=== PATIENT | female | born 1955 | race Caucasian/White ===

== ENCOUNTER 2025-04-29 07:49 | Outpatient (REF) | payer MEDICARE, SELFPAY ==
--- OUTSIDE RECORDS SUMMARY | 2025-04-29 07:52 | XMS_ITS ---
Author Name [facility] Organization Unknown Care Team Organization Name Specialty Phone Email Start Date End [facility] 04/10/2025
--- OUTSIDE RECORDS SUMMARY | 2025-04-29 07:52 | XMS_ITS | Clinical Summary ---
Author Organization [address] Address [address] [place] [phone] Phone Care Team Providers Care Mail Clerk Bills Name Role Phone Dax Masters MD Primary Care Pr ovider Allergies Active Allergy Reactions Criticality Noted Date Comments Cefazolin Rash Medium 05/24/2024 Diffuse fine macular rash after surgery, possibly due to antibiotics. Other Rash Medium 05/24/2024 Chlorhexidine Gluconate-alcohol Diffuse fine macular rash after surgery, possibly due to ChloraPrep skin prep. Medications calcium carbonate/vitamin D3 (CALCIUM 600 + D,3, ORAL) 1 Tab daily. Active amoxicillin (AMOXIL) 500 mg capsule Take by mouth. Active levothyroxine (SYNTHROID, LEVOTHROID) 50 mcg tabletIndications:A cquired hypothyroidism Take 1 tablet (50 mcg total) by mouth 1 (one) time each day before breakfast. 90 each 1 5 09/09/19 26 Active Active Problems Problem Noted Date Diagnosed Date Wheezing 09/12/2024 Assessment & Plan (03/13/2025 9:31 AM EDT): See HPI. PFTs reordered Orders: Pulmonary function testing: Spirometry, Spirometry with Bronchodilator Assessment & Plan (09/12/2024 10:55 AM EST): Noted on exam. She notes occasional nighttime wheezing. She is a former smoker. Will check PFTs and chest x-ray. Start albuterol PRN Orders: XR Chest 2 Views; Future Pulmonary function testing: Spirometry, Spirometry with Bronchodilator albuterol HFA (ProAir HFA) 90 mcg/actuation inhaler; Inhale 2 puffs by mouth every 4 (four) hours if needed for wheezing or shortness of breath. Bilateral hearing loss 09/12/2024 Assessment & Plan (03/13/2025 9:31 AM EDT): Referred to audiology for hearing exam. See HPI Orders: Ambulatory referral to Audiology; Future Assessment & Plan (09/12/2024 10:55 AM EST): Will refer for hearing test Orders: Comprehensive hearing test; Future Prediabetes 09/12/2024 Assessment & Plan (03/13/2025 9:31 AM EDT): Lifestyle counseling provided. Will update A1c Orders: Hemoglobin A1c; Future Left ovarian cyst 10/24/2023 Overview (07/17/2024): Normal CA 125 10/24/23, repeat US scheduled in 3 mos Last Assessment & Plan: I explained to Manjula that, based on stability, it likely means this is benign. However, based on calcification and septation, as well as possible family history, I recommended a second opinion from Dr. Torrez. She agreed. Referral placed. She was informed that she should hear back in 1-2 weeks with an appointment date. If not, she should call back to our office and inquire on getting this arranged. She voiced understanding and agreed. History of right oophorectomy 10/11/2023 Osteoporosis 02/09/2017 Assessment & Plan (03/13/2025 9:31 AM EDT): Advised to start strength training exercises. She will continue calcium/vitamin D supplement. She is currently not interested in medication management for osteoporosis Assessment & Plan (09/12/2024 10:55 AM EST): Currently not interested in prescription medication for osteoporosis. She will continue calcium/vitamin D supplement daily Will update DEXA Orders: CBC and differential; Future Comprehensive metabolic panel; Future Vitamin D 25 hydroxy; Future BD Bone Density DXA Axial Skeleton; Future Colonic polyp 09/25/2015 Overview (07/17/2024): Tubullo-villous adenoma; 09/06; Hirschkorn; R 1 yr Hypothyroid 06/14/2013 Assessment & Plan (03/13/2025 9:31 AM EDT): Well controlled Continue levothyroxine Orders: levothyroxine (SYNTHROID, LEVOTHROID) 50 mcg tablet; Take 1 tablet (50 mcg total) by mouth 1 (one) time each day before breakfast. Thyroid stimulating hormone with reflex to free t4 and free t3; Future Assessment & Plan (09/12/2024 10:55 AM EST): Will update labs. For now continue levothyroxine 50 mcg daily. Orders: CBC and differential; Future Comprehensive metabolic panel; Future Thyroid stimulating hormone with reflex to free t4 and free t3; Future Thyroid peroxidase antibody; Future Vitamin D deficiency 06/14/2013 Assessment & Plan (03/13/2025 9:31 AM EDT): Continue daily calcium/vitamin D supplement Orders: Vitamin D 25 hydroxy; Future Assessment & Plan (09/12/2024 10:55 AM EST): Continue calcium/vitamin D daily Orders: Vitamin D 25 hydroxy; Future Hiatal hernia 05/21/2010 GERD (gastroesophageal reflux disease) 0 Overview (07/17/2024): Upper GI endoscopy 05/21/2010: 4 cm hiatal hernia, no esophagitis on ppi rx Assessment & Plan (03/13/2025 9:31 AM EDT): Continue lifestyle management Assessment & Plan (09/12/2024 10:55 AM EST): Continue Tums as needed which is effective Declines tx with pepcid or omeprazole Hyperlipidemia 12/20/2008 Overview (09/12/2024): Calculated ascvd risk is 9.8% Assessment & Plan (03/13/2025 9:31 AM EDT): See HPI Counselling provided on need for statin medication but she declines the treatment at this time. Will update labs Advised to increase her exercise at least 30 minutes a day 5 days a week and follow a low-cholesterol diet Orders: Lipid panel with reflex to direct LDL; Future Comprehensive metabolic panel; Future Assessment & Plan (09/12/2024 10:55 AM EST): Lifestyle modification counseling provided Orders: Lipid panel with reflex to direct LDL; Future Hemoglobin A1c; Future Volvulus (CMS/HCC V24, CMS/HCC V28) 06/16/2006 Overview (07/17/2024): Rtew-ck-jrnc ileocolonic anastomosis. Celiac disease 06/16/2006 Assessment & Plan (03/13/2025 9:31 AM EDT): Continue gluten-free diet Assessment & Plan (01/11/2025 9:58 AM EDT): Slightly elevated TTG(6) Patient has been stricter about following her gluten-free diet Routine labs with PCP were in normal range including LFTs, TSH, vitamin D Will follow-up as needed Assessment & Plan (10/12/2024 1:11 PM EST): Orders: Tissue transglutaminase, IgA; Future Resolved Problems Problem Noted Date Diagnosed Date Resolved Date Heartburn 06/16/2006 03/13/2025 Overview (07/17/2024): 01/29- dr Cazares normal laryngoscopy Encounters Date Type Department Care Team Description 04/04/2025 7:45 AM EDT - 04/04/2025 11:59 PM EDT Hospital Encounter Radiology Department - [address] [phone] Encounter for screening mammogram for breast cancer Discharge Disposition: Home or Self Care 04/01/2025 12:32 PM EDT - 04/01/2025 11:59 PM EDT Hospital Encounter [facility] Pulmonary [address] [place] [address] Discharge Disposition: Home or Self Care 03/13/2025 9:00 AM EDT Office Visit [address] [phone] Dax Masters MD Annual wellness visit (Primary Dx); Acquired hypothyroidism; Mixed hyperlipidemia; Localized osteoporosis without current pathological fracture; Prediabetes; Vitamin D deficiency; Gastroesophageal reflux disease without esophagitis; Celiac disease; Sensorineural hearing loss (SNHL) of both ears; Wheezing; Elevated vitamin B12 level from Last 3 Months Immunizations Name Administration Dates Next Due PPD Test 06/20/2006 Td Tetanus diptheria (Tdvax) 7yo and older 04/27 Tdap Tetanus diptheria acell ular pertussis (Boostrix; Adacel) 7yo and older 12/06/2007 Surgical History Surgery Date Site/Laterality Comments OTHER SURGICAL HISTORY 1989 PROCEDURE: HISTORICAL TOTAL HYSTERECTOMY W/O BSO; COMMENT: Hysterectomy with right salpingo-oophorectomy at age 35 for fibroids. COLONOSCOPY 09/02/2005 PROCEDURE: HISTORICAL COLONOSCOPY; COMMENT: normal, no microscopic colitis ESOPHAGOGASTRODUODENOSCOPY 09/02/2005 PROCEDURE: SD EGD TRANSORAL BIOPSY SINGLE/MULTIPLE; COMMENT: celiac disease OTHER SURGICAL HISTORY 1996 PROCEDURE: SD COLECTOMY PARTIAL W/ANASTOMOSIS; COMMENT: right colectomy for cecal volvulus. ESOPHAGOGASTRODUODENOSCOPY 2009 PROCEDURE: SD ESOPHAGOGASTRODUODENOSCOPY TRANSORAL DIAGNOSTIC; COMMENT: 4 cm hiatal hernia, no esophagitis on ppi rx COLONOSCOPY 09/11/2015 PROCEDURE: HISTORICAL COLONOSCOPY; COMMENT: 2 cm rectal polyp: Tubulovillous adenoma with high-grade dysplasia, no cancer. COLONOSCOPY 09/14/2016 PROCEDURE: HISTORICAL COLONOSCOPY; COMMENT: no polyps BREAST BIOPSY Right PROCEDURE: BX BREAST; PERC NEEDLE CORE W/IMAG GUID; COMMENT: neg COLONOSCOPY 09/22/2021 - 10/19/2021 sig tics, prior end-to-end ileo-colonic anastomosis at hepatic flexure, tattoo in rectum (5 yr) Dr. Calle HYSTERECTOMY Medical History Medical History Date Comments Volvulus (CMS/HCC V24, CMS/HCC V28) 06/16/2006 DX:Volvulus (HCC) Heartburn 06/16/2006 DX:Heartburn Celiac disease 06/16/2006 DX:Celiac diseas e Other and unspecified hyperlipidemia 12/20/2008 DX:Other and unspecified hyperlipidemia Hypothyroid 06/14/2013 DX:Hypothyroid Constipation DX:Constipation Family History Medical History Relation Name Comments Breast cancer Aunt ma Ovarian cancer Aunt jairo Other: Other Brother possible enlarg ed heart Ovarian cancer Daughter 19 cm mass, s tage [place], treated with surgery alone. Colon polyps Father dx > 60 yo Hypertension Father Diabetes Maternal Grandmother Heart attack Maternal Grandmother Other: problem Maternal Grandmother angin a Colon cancer Neg Hx Relation Name Status Comments Aunt jairo Brother Daughter Alive Father Alive Maternal Grandmother Mother Alive Social History Tobacco Use Types Packs/Day Years Used Date Smoking Tobacco: Former Cigarettes 0 1971 - 08/22/1983 Smokeless Tobacco: Never Tobacco Cessation:Counseling Given: Not Answered Comments:Quit smoking about 42 years ago Alcohol Use Standard Drinks/Week Comments Not Currently 1 (1 standard drink = 0.6 oz pur e alcohol) social Comments No Sex and Gender Information Value Date Recorded Sex Assigned at Not on file Legal Sex Female 11:40 PM EST Gender Identity Not on file Sexual Orientation Not on file Obstetrics History Para Term AB IAB SAB Ectopic Multiple Livin g Live Births 2 2 2 2 Date Outcome GA Total Labor Labor/2nd/3rd Weight Sex Type Anes PTL Génesis A1 A5 Name Clin Term Term Last Filed Vital Signs Vital Sign Reading Time Taken Comments Blood Pressure 120/78 03/13/2025 8:37 AM EDT Pulse 88 03/13/2025 8:37 AM EDT Temperature 36.4 C (97.5 F) 03/13/2025 8:37 AM EDT Respiratory Rate 17 09/12/2024 8:40 AM EST Oxygen Saturation 95% 03/13/2025 8:37 AM EDT Inhaled Oxygen Concentration - - Weight 70.9 kg (156 lb 6.4 oz) 03/13/2025 8:37 A M EDT Height 157.5 cm (5' 2.01 ) 03/13/2025 8:37 AM ED T Body Mass Index 28.6 03/13/2025 8:37 AM EDT Plan of Treatment Upcoming Encounters Date Type Department Care Team (Late st Contact Info) Description 09/16/2025 9:30 AM EST Office Visit Adult Medicine [facility] [address] [place] [phone] Dax Masters MD [address] [place] [address] Health Maintenance Due Date Last Done Comments Social Influencers of Health Screening 07/31/2022 Falls Risk Assessment 03/13/2026 03/13/2025 Medicare Annual Wellness Visit 03/13/2026 03/13/2025 Colorectal Cancer Screening: Colonoscopy 10/05/2026 10/05/2021 Breast Cancer Screening 04/04/2027 04/04/20 25, 03/29/2024, 03/29/2024, Additional history exists DTaP,Tdap,and Td Vaccines (3 - Td or Tdap) 04/27/2028 04/27/2018, 12/06/2007 RSV Immunization Adult Patients (1 - 1-dose 75+ series) 2030 Cholesterol Screening (Lipid Panel) 03/13/2030 03/13/2025, 09/12/2024, 10/02/2020 Osteoporosis Screening (Bone Density Screening) 11/30/2034 11/30/2024, 08/07/2020 Hepatitis C Screening Completed 04/23/2016 Depression Screening Completed 03/13/2025 COVID-19 Vaccine Discontinued HIB Vaccines Aged Out No longer eligi ble based on patient's age to complete this topic HPV Vaccines Aged Out No longer eligi ble based on patient's age to complete this topic Hepatitis A Vaccines Aged Out No long er eligible based on patient's age to complete this topic Hepatitis B Vaccines Aged Out No long er eligible based on patient's age to complete this topic IPV Vaccines Aged Out No longer eligi ble based on patient's age to complete this topic Influenza Vaccine Discontinued MMR Vaccines Aged Out No longer eligi ble based on patient's age to complete this topic Meningococcal ACWY Vaccine Aged Out N o longer eligible based on patient's age to complete this topic Meningococcal B Vaccine Aged Out No l onger eligible based on patient's age to complete this topic Pneumococcal Vaccine: 50+ Years Discontinued RSV Immunization Patients Under 20 months Aged Out No longer eligible based on patient's age to complete this topic Varicella Vaccines Aged Out No longer eligible based on patient's age to complete this topic Zoster Vaccines Discontinued Procedures Procedure Name Priority Date/Time Associated Diagnosis Comments MG MAMMO DIGITAL SCREENING W NIK BILAT Routine 04/04/2025 8:01 AM EDT Encounter for screening mammogram for breast cancer HC SPIROMETRY BRONCHODILATION RESPONSIVENESS PRE/POST BRONCHODILATOR ADMINISTRATION Routine 04/01/2025 1:42 PM EDT Wheezing VITAMIN B12 Routine 03/13/2025 9:39 AM EDT Elevated vitamin B12 level COMPREHENSIVE METABOLIC PANEL Routine 03/13/2025 9:39 AM EDT Mixed hyperlipidemia HEMOGLOBIN A1C Routine 03/13/2025 9:39 AM EDT Prediabetes LIPID PANEL WITH REFLEX TO DIRECT LDL Routine 03/13/2025 9:39 AM EDT Mixed hyperlipidemia THYROID STIMULATING HORMONE WITH REFLEX TO FREE T4 AND FREE T3 Routine 03/13/2025 9:39 AM EDT Acquired hypothyroidism VITAMIN D 25 HYDROXY Routine 03/13/2025 9:39 AM EDT Vitamin D deficiency BD BONE DENSITY DXA AXIAL SKELETON Routine 11/30/2024 2:49 PM EDT Age-related osteoporosis without current pathological fracture HM COLONOSCOPY Routine 10/05/2021 HEPATITIS C SCREENING Routine 04/23/2016 from Last 3 Months or Most Recently Relevant to Health Maintenance Results * MG Mammo Digital Screening w Nik bilat (04/04/2025 8:01 AM EDT) Anatomical Region Laterality Modality Breast Bilateral Mammography 04/04/2025 5:42 PM EDT Impressions 04/04/2025 5:44 PM EDT No mammographic evidence of malignancy. BREAST DENSITY: B - There are scattered areas of fibroglandular density. BI-RADS CATEGORY: 1 - NEGATIVE RECOMMENDATION: Screening bilateral mammogram is recommended in 1 year. MAMMO LOCATION: [facility], [address] [place] [address], [id number], . -------- FINAL REPORT -------- Dictated By: Belinda Lord Dictated Date: 04/04/2025 17:42 ET Assigned Physician: Belinda Lord Reviewed and Electronically Signed By: Belinda Lord Signed Date: 04/04/2025 17:44 ET Workstation ID: [id number] Transcribed By: Self Edit Transcribed Date: 04/04/2025 17:42 ET Narrative 04/04/2025 5:44 PM EDT EXAM: Screening Mammogram CLINICAL: 70 years old, Female, routine annual exam. History of a benign right ultrasound-guided core biopsy on 08/19/2017. COMPARISON: 03/29/2024 and as far back as 11/27/2020 TECHNIQUE: Bilateral MLO and CC views were obtained digitally with 3-D mammogram (digital breast tomosynthesis). Computer-aided detection was utilized in evaluation of this exam (CAD). FINDINGS: No new suspicious mass, architectural distortion, or suspicious calcifications. Biopsy clip again noted in the posterior inner right breast. Procedure Note Belinda Lord MD - 04/04/2025 EXAM: Screening Mammogram CLINICAL: 70 years old, Female, routine annual exam. History of a benignright ultrasound-guided core biopsy on 08/19/2017. COMPARISON: 03/29/2024 and as far back as 11/27/2020 TECHNIQUE: Bilateral MLO and CC views were obtained digitally with 3-Dmammogram (digital breast tomosynthesis). Computer-aided detection wasutilized in evaluation of this exam (CAD). FINDINGS: No new suspicious mass, architectural distortion, or suspiciouscalcifications. Biopsy clip again noted in the posterior inner rightbreast. IMPRESSION: No mammographic evidence of malignancy. BREAST DENSITY: B - There are scattered areas of fibroglandular density. BI-RADS CATEGORY: 1 - NEGATIVE RECOMMENDATION: Screening bilateral mammogram is recommended in 1 year. MAMMO LOCATION: [facility], [address] [place] [address], [id number], . -------- FINAL REPORT -------- Dictated By: Belinda Lord Dictated Date: 04/04/2025 17:42 ET Assigned Physician: Belinda Lord Reviewed and Electronically Signed By: Belinda Lord Signed Date: 04/04/2025 17:44 ET Workstation ID: [id number] Transcribed By: Self Edit Transcribed Date: 04/04/2025 17:42 ET us Dax Masters MD IMG BI PROCEDURE S Final Result * Pulmonary function testing: Spirometry, Spirometry with Bronchodilator (04/01/2025 1:42 PM EDT) Narrative Moon Alejo MD - 04/01/2025 7:04 PM EDT Table formatting from the original result was not included. Images from the original result were not included. [facility] Lab [address] [place] [id number] Pulmonary Functions Report Date of service: 04/01/25 Patient Name: Manjula Shea Date of : 1955 Age: 70 y.o. Gender: female Procedure Order: Pulmonary function testing: Spirometry, Spirometry with Bronchodilator Ordering Provider: Dax Masters MD Reason for Exam: Order Questions Answers Reason for Exam: wheezing/? COPD/former smoker Which PFTs would you like to perform? Spirometry,Spirometry with Bronchodilator Diagnosis listed on Order: Wheezing Pulmonary Test Finding: Spirometry/ Flow Volume Loop: FEV1/FVC 80%. FEV1 is 2.44 at 118%, w/ z score 1.03. FVC is 115%. No bronchodilator response. Lung Volumes: TLC is normal 80%, w/ z score -1.59. RV is 43%. RV/TLC 54%. Diffusion Capacity: DLCO is 89%, (adjusted 89%). Shape of the flow-volume loop showed neither intrathoracic nor extrathoracic obstruction. Quality of Study: Meets ATS criteria for acceptability and repeatability Refer to scanned report for all additional results and graphs. Interpretation/Impression: No obstruction. No restriction. No decrease in diffusion. Findings consistent with normal pulmonary function testing. Dax Masters MD PFT ORDERABLES Final Result * Thyroid stimulating hormone with reflex to free t4 and free t3 (03/13/2025 9:39 AM EDT) [facility] TSH 1.95 0.40 - 4.00 mcIU/mL LAB CHEMISTRY METHOD 03/13/2025 2:21 PM EDT [facility] Blood Venous blood specimen / Unknown Venipuncture / Unknown 03/13/2025 9:39 AM EDT 03/13/2025 9:39 AM EDT Dax Masters MD LAB BLOOD ORDERA BLES Final Result [facility] [address] [place] [address], [place] [phone] * (ABNORMAL) Lipid panel with reflex to direct LDL (03/13/2025 9:39 AM EDT) Cholesterol 262(H) 0 - 200 mg/dL LAB CHEMISTRY METHOD 03/13/2025 1:36 PM EDT [facility] Triglycerides 135 0 - 150 mg/dL LAB CHEMISTRY METHOD 03/13/2025 1:36 PM EDT [facility] HDL 73 >=40 mg/dL LAB CHEMISTRY METHOD 03/13/2025 1:36 PM EDT [facility] LDL Calculated 162(H) 0 - 100 mg/dL LAB CHEMISTRY METHOD 03/13/2025 1:36 PM EDT [facility] VLDL Cholesterol Eliseo 27 mg/dL LAB CHEMISTRY METHOD 03/13/2025 1:36 PM EDT [facility] Non HDL Chol. (LDL+VLDL) 189(H) <145 mg/dL LAB CHEMISTRY METHOD 03/13/2025 1:36 PM EDT [facility] Chol/HDL Ratio 3.6 0.0 - 4.4 LAB CHEMISTRY METHOD 03/13/2025 1:36 PM EDT [facility] Blood Venous blood specimen / Unknown Venipuncture / Unknown 03/13/2025 9:39 AM EDT 03/13/2025 9:39 AM EDT Dax Masters MD LAB BLOOD ORDERA BLES Final Result Performing Organization Address [facility]/ZIP Co de Phone Number [facility] [address] [place] [address], [place] [phone] * (ABNORMAL) Vitamin D 25 hydroxy (03/13/2025 9:39 AM EDT) Pathologist [facility] Vit D, 25-Hydroxy 23.6(L) 30.0 - 80.0 ng/mL LAB CHEMISTRY METHOD 03/13/2025 2:21 PM EDT [facility] Blood Venous blood specimen / Unknown Venipuncture / Unknown 03/13/2025 9:39 AM EDT 03/13/2025 9:39 AM EDT Dax Masters MD LAB BLOOD ORDERA BLES Final Result [facility] [address] [place] [address], [place] [phone] * Hemoglobin A1c (03/13/2025 9:39 AM EDT) Pathologist [facility] Hemoglobin A1C 5.9 <6.5 % LAB CHEMISTRY METHOD 03/13/2025 1:40 PM EDT [facility] Mean Bld Glu Estim. 123 mg/dL LAB CHEMISTRY METHOD 03/13/2025 1:40 PM EDT [facility] Blood Venous blood specimen / Unknown Venipuncture / Unknown 03/13/2025 9:39 AM EDT 03/13/2025 9:39 AM EDT Dax Masters MD LAB BLOOD ORDERA BLES Final Result Performing Organization Address City/[facility]/ZIP Co de Phone Number [facility] [address] [place] [address], [place] [phone] * Vitamin B12 (03/13/2025 9:39 AM EDT) Vitamin B-12 672 250 - 900 pcg/mL LAB CHEMISTRY METHOD 03/13/2025 1:36 PM EDT [facility] Blood Venous blood specimen / Unknown Venipuncture / Unknown 03/13/2025 9:39 AM EDT 03/13/2025 9:39 AM EDT Dax Masters MD LAB BLOOD ORDERA BLES Final Result Performing Organization Address City/[facility]/ZIP Co de Phone Number [facility] [address] [place] [address], [place] [phone] * (ABNORMAL) Comprehensive metabolic panel (03/13/2025 9:39 AM EDT) Sodium 140 133 - 145 mmol/L LAB CHEMISTRY METHOD 03/13/2025 1:36 PM EDT [facility] Potassium 4.2 3.5 - 5.5 mmol/L LAB CHEMISTRY METHOD 03/13/2025 1:36 PM EDT [facility] Chloride 108 96 - 110 mmol/L LAB CHEMISTRY METHOD 03/13/2025 1:36 PM [facility] CO2 24 21 - 32 mmol/L LAB CHEMISTRY METHOD 03/13/2025 1:36 PM [facility] Anion Gap 8 3 - 11 LAB CHEMISTRY METHOD 03/13/2025 1:36 PM [facility] Glucose 107(H) 70 - 100 mg/dL LAB CHEMISTRY METHOD 03/13/2025 1:36 PM [facility] BUN 13 5 - 25 mg/dL LAB CHEMISTRY METHOD 03/13/2025 1:36 PM [facility] Creatinine 0.62 0.50 - 1.10 mg/dL LAB CHEMISTRY METHOD 03/13/2025 1:36 PM [facility] eGFR 96 >=60 mL/min/1. 73m2 LAB CHEMISTRY METHOD 03/13/2025 1:36 PM [facility] Comment:Calculation based on the Chronic Kidney Disease Epidemiology Collaboration (CKD-EPI) equation refit without adjustment for race. BUN/Creatinine Ratio 21.0 LAB CHEMISTRY METHOD 03/13/2025 1:36 PM [facility] Calcium 10.1 8.5 - 10.5 mg/dL LAB CHEMISTRY METHOD 03/13/2025 1:36 PM [facility] AST (SGOT) 25 10 - 42 unit/L LAB CHEMISTRY METHOD 03/13/2025 1:36 PM [facility] ALT (SGPT) 33 10 - 60 unit/L LAB CHEMISTRY METHOD 03/13/2025 1:36 PM [facility] Alkaline Phosphatase 91 42 - 121 unit/L LAB CHEMISTRY METHOD 03/13/2025 1:36 PM [facility] Total Protein 7.0 6.0 - 8.0 g/dL LAB CHEMISTRY METHOD 03/13/2025 1:36 PM [facility] Albumin 4.2 3.2 - 5.0 g/dL LAB CHEMISTRY METHOD 03/13/2025 1:36 PM EDT [facility] Total Bilirubin 0.6 0.0 - 1.4 mg/dL LAB CHEMISTRY METHOD 03/13/2025 1:36 PM EDT [facility] Blood Venous blood specimen / Unknown Venipuncture / Unknown 03/13/2025 9:39 AM EDT 03/13/2025 9:39 AM EDT Dax Masters MD LAB BLOOD ORDERA BLES Final Result [facility] [address] [place] [address], [place] [phone] * BD Bone Density DXA Axial Skeleton (11/30/2024 2:49 PM EDT) Anatomical Region Laterality Modality Wrist, Hip, L-spine Bone Densito metry 11/30/2024 3:05 PM EDT Impressions 11/30/2024 3:07 PM EDT Impression: This patient's considered to have osteoporosis by WHO criteria. The [facility] Department of Internal Medicine recommends using National Osteoporosis Foundation (NOF) guidelines in treatment decisions related to osteoporosis. NOF guidelines suggest considering treatment for postmenopausal women and men aged 50 or older presenting with the following: History of hip or vertebral fracture. T-score = -2.5 (DXA) at the femoral neck, total hip, or spine, after appropriate evaluation to exclude secondary causes. Low bone mass (T-score between -1.0 and -2.5 at the femoral neck or spine) AND a 10-year probability of a hip fracture = 3% OR a 10-year probability of a major osteoporosis-related fracture = 20% based on the [place]-adapted WHO algorithm Please note that all treatment decisions require clinical judgment and consideration of individual patient factors, including patient preferences, co-morbidities, previous drug use, risk factors not captured in the FRAX model (e.g., frailty, falls, vitamin D deficiency, increased bone turnover, interval significant decline in bone density) and possible under- or over-estimation of fracture risk by FRAX. Optional alternative screening schedule based on goyo Mackay., [facility] September 09, 2011 for patients with osteopenia (based on hip BMD T-score) is as follows: * advanced osteopenia (T scores -2.00 to -2.49), BMD testing every year * moderate osteopenia (T scores -1.50 to -1.99), BMD testing every 5 years mild osteopenia or normal BMD (T scores -1.50 and higher), BMD testing every 15 years -------- FINAL REPORT -------- Dictated By: Abby Noriega Dictated Date: 11/30/2024 15:05 ET Assigned Physician: Abby Noriega Reviewed and Electronically Signed By: Abby Noriega Signed Date: 11/30/2024 15:07 ET Workstation ID: [id number] Transcribed By: Self Edit Transcribed Date: 11/30/2024 15:05 ET Narrative 11/30/2024 3:07 PM EDT BONE DENSITY (DEXA) Lumbar Spine T-score is -3.1. (SD relative to 20-29 y/o adult) Z-score is -1.0. (SD relative to age matched peers) This is considered osteoporosis by WHO criteria. Left Hip T-score is -3.5. Z-score is -1.7. This is considered osteoporosis by WHO criteria. Lateral view of the spine demonstrates vertebral heights to be maintained. Procedure Note Abby Noriega MD - 11/30/2024 BONE DENSITY (DEXA) Lumbar Spine T-score is -3.1. (SD relative to 20-29 y/o adult) Z-score is -1.0. (SD relative to age matched peers) This is considered osteoporosis by WHO criteria. Left Hip T-score is -3.5. Z-score is -1.7. This is considered osteoporosis by WHO criteria. Lateral view of the spine demonstrates vertebral heights to bemaintained. IMPRESSION: Impression: This patient's considered to have osteoporosis by WHO criteria. The [facility] Department of Internal Medicine recommendsusing National Osteoporosis Foundation (NOF) guidelines in treatmentdecisions related to osteoporosis. NOF guidelines suggest consideringtreatment for postmenopausal women and men aged 50 or older presentingwith the following: History of hip or vertebral fracture. T-score = -2.5 (DXA) at the femoral neck, total hip, or spine, afterappropriate evaluation to exclude secondary causes. Low bone mass (T-score between -1.0 and -2.5 at the femoral neck or spine)AND a 10-year probability of a hip fracture = 3% OR a 10-year probabilityof a major osteoporosis-related fracture = 20% based on the [place]-adapted WHOalgorithm Please note that all treatment decisions require clinical judgment andconsideration of individual patient factors, including patientpreferences, co-morbidities, previous drug use, risk factors not capturedin the FRAX model (e.g., frailty, falls, vitamin D deficiency, increasedbone turnover, interval significant decline in bone density) and possibleunder- or over-estimation of fracture risk by FRAX. Optional alternative screening schedule based on go[facility] [place]., [facility] for patients with osteopenia (based on hip BMD T-score)is as follows: * advanced osteopenia (T scores -2.00 to -2.49), BMD testing every year * moderate osteopenia (T scores -1.50 to -1.99), BMD testing every 5years mild osteopenia or normal BMD (T scores -1.50 and higher), BMD testingevery 15 years -------- FINAL REPORT -------- Dictated By: Abby Noriega Dictated Date: 11/30/2024 15:05 ET Assigned Physician: Abby Noriega Reviewed and Electronically Signed By: Abby Noriega Signed Date: 11/30/2024 15:07 ET Workstation ID: [id number] Transcribed By: Self Edit Transcribed Date: 11/30/2024 15:05 ET Dax Masters MD [facility] DXA PROCEDUR ES Final Result * Colonoscopy (10/05/2021) Colonoscopy no interpretation abstracted Anatomical Region Laterality Modality Other Historical Provider HEALTH MAINTENANCE Final Result * Hepatitis C Screening (04/23/2016) Hepatitis C Screening abstracted us Historical Provider HEALTH MAINTENANCE Final Result from Last 3 Months or Most Recently Relevant to Health Maintenance Insurance [employer] Advance Directives Documents on File Type Date Recorded Patient 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
== END 2025-04-29 07:50 | disposition home or self-care (01) ==
LOC: HO.SH 07:49
PROVIDERS: Visit Provider Family Medicine
DX: Z01.118 Encounter for examination of ears and hearing with other abnormal findings (principal); H90.3 Sensorineural hearing loss, bilateral
CPT/HCPCS: 92557; 92567